=== PATIENT | female | born 1955 | race Two or more races ===

== ENCOUNTER 2017-07-19 11:23 | Inpatient (IN) | payer MEDICARE, MEDICAID ==
[~2017-07-19] VITALS: Ht 152.4 cm; Wt 49.0 kg
[~2017-07-19 11:23] MED LIST: ATOR40TA52 PO; CLOP75TA41 PO; FER325T PO; FURO10SO PO; HYDR25TA35 PO
[2017-07-19 12:42] LABS: Urine Bacteria FEW /hpf (None Seen); Urine Blood Negative /uL (Negative); Urine Specific Gravity 1.016 (1.001-1.035); Urine WBC 1 /hpf (0 - 5)
[2017-07-19 13:09] LABS: Basophils # (auto) 0 uL; Basophils % (auto) 0.3 % (0.0-2.0); Eosinophils # (auto) 0 uL; Hematocrit 30.3 % (36.0-46.0); Hemoglobin 9.9 g/dL (12.2-16.2); Lymphocytes # (auto) 1.2 uL; Lymphocytes % (auto) 8.3 % (10.0-50.0); Mean Corpuscular Hemoglobin 29.3 pg (28.0-32.0); Mean Corpuscular Hgb Conc. 32.7 g/dL (32.0-36.0); Mean Corpuscular Volume 89.4 fL (80.0-100.0); Monocytes # (auto) 1.1 uL; Monocytes % (auto) 7.6 % (0.0-12.0); Neutrophils # (auto) 11.8 uL; Neutrophils % (auto) 83.8 % (37.0-80.0); Platelet Count (auto) 230 10^3/uL (140-450); Red Blood Cells 3.39 10^6/uL (4.0-5.20); Red Cell Distribution Width 13.5 % (11.8-14.3)
[2017-07-19 13:58] LABS: Albumin 3.7 g/dL (3.4-5.0); BUN/Creatinine Ratio 8.4; Bilirubin, Total 0.4 mg/dL (0.2-1.0); Calcium 8.7 mg/dL (8.5-10.1); Potassium 4.9 mmol/L (3.5-5.1); Total Protein 7.8 g/dL (6.4-8.2)
[2017-07-19] MEDS ORDERED: SODIUM CHLORIDE 0.9% 1,000 ML IV ONE (14:53)
[2017-07-19] MEDS ORDERED: ONDANSETRON HCL 4 MG/2 ML VIAL IV ONE (15:00)
[2017-07-19 15:13] LABS: Amylase 109 U/L (25-115); Lipase 264 U/L (73-393)
[2017-07-19] MEDS ORDERED: cloNIDine HCL 0.1 MG TAB PO ONE (15:30)
[2017-07-19 15:50] LABS: Lactic Acid w/Reflex 3.2 mmol/L (0.4-2.0)
[2017-07-19] MEDS ORDERED: DEXTROSE (50%) 50ML SYRG IV PRN (16:30)
[2017-07-19] MEDS ORDERED: HYDROcodone-ACET 5/325MG TAB PO PRN (16:30)
[2017-07-19] MEDS ORDERED: MORPHINE SULFATE 10 MG/ML INJ 1ML SDV IV PRN (16:30)
[2017-07-19] MEDS ORDERED: NITROGLYCERIN 0.4 MG SL TAB SL PRN (16:30)
[2017-07-19] MEDS ORDERED: ACETAMINOPHEN 500 MG TAB PO PRN (16:30)
[2017-07-19] MEDS ORDERED: ALBUTEROL SULF 2.5 MG/0.5ML(0.5%) NEB SOLN NEB PRN (16:30)
[2017-07-19] MEDS ORDERED: LORazepam 0.5 MG TAB PO PRN (16:30)
[2017-07-19] MEDS ORDERED: TEMAZEPAM 15 MG CAP PO PRN (16:30)
[2017-07-19] MEDS ORDERED: AZITHROMYCIN 500MG/ 250ML 250 ML IV ONE ×2 (16:30→21:00)
[2017-07-19] MEDS ORDERED: VANCOMYCIN PER PHARMACY 0 MG IV SCH (16:30)
[2017-07-19] MEDS ORDERED: PROMETHAZINE HCL 25 MG/ML 1ML IV PRN (16:30)
[2017-07-19] MEDS ORDERED: PIPERACILLIN-TAZOB 2.25GM 50 ML IV ONE (16:30)
[2017-07-19] MEDS ORDERED: MORPHINE SULF INJ 2 MG/ML SYRINGE 1ML IV PRN (16:30)
[2017-07-19] MEDS ORDERED: OSELTAMIVIR 75 MG CAP PO ONE (17:00)
[2017-07-19 17:04] LABS: Alcohol, Urine < 3.0 mg/dL (0-5); Amphetamine Screen, Urine NEGATIVE (NEGATIVE); Barbiturate Scree,Urine NEGATIVE (NEGATIVE); Benzodiazephine Screen, Urine NEGATIVE (NEGATIVE); Cannabinoid Screen, Urine NEGATIVE (NEGATIVE); Cocaine Screen, Urine NEGATIVE (NEGATIVE); Opiate Scree,Urine NEGATIVE (NEGATIVE); Phencyclidine Screen, Urine NEGATIVE (NEGATIVE)
[2017-07-19] MEDS: ACCU-CHEK COMFORT CURVE STRIP VI SCH ×2 (17:13→22:00)
[2017-07-19] MEDS: InsuLIN REG 1unit/0.01ml Soln (100units/ml) SC SCH ×2 (17:16→22:37)
[2017-07-19] MEDS: NITROGLYCERIN 50MG/250ML 250 ML IV SCH (17:29)
[2017-07-19] MEDS ORDERED: VANCOMYCIN 750 MG in D5W 5% 250 ML IV ONE ×2 (17:30→20:00)
[2017-07-19] MEDS: ALBUTEROL SULF 2.5 MG/0.5ML(0.5%) NEB SOLN NEB SCH (18:00)
[2017-07-19] MEDS: IPRATROPIUM BROM 0.5 MG/2.5ML INH SOL NEB SCH (18:00)
[2017-07-19 19:29] VITALS: BP 142/65
[2017-07-19] MEDS: SODIUM CHLOR 0.9% PF (SALINE LOCK) 10ML VIAL IV SCH (22:00)
[2017-07-19] MEDS: CARVEDILOL 3.125 MG TAB PO SCH (22:30)
[2017-07-19] MEDS: FERROUS SULFATE 325 MG TAB PO SCH (22:30)
[2017-07-19] MEDS: hydrALAZINE HCL 25 MG TAB PO SCH (22:30)
[2017-07-19] MEDS: PIPERACILLIN-TAZOB 2.25GM 50 ML IV SCH (23:29)
[2017-07-20] MEDS: PIPERACILLIN-TAZOB 2.25GM 50 ML IV SCH ×3 (05:33→22:25)
[2017-07-20] MEDS: FERROUS SULFATE 325 MG TAB PO SCH ×3 (05:33→22:26)
[2017-07-20] MEDS: SODIUM CHLOR 0.9% PF (SALINE LOCK) 10ML VIAL IV SCH ×3 (05:33→22:26)
[2017-07-20] MEDS: hydrALAZINE HCL 25 MG TAB PO SCH ×3 (05:34→22:25)
[2017-07-20 05:43] LABS: Basophils # (auto) 0.1 uL; Basophils % (auto) 0.9 % (0.0-2.0); Eosinophils # (auto) 0 uL; Eosinophils % (auto) 0.3 % (0.0-7.0); Hematocrit 26.2 % (36.0-46.0); Hemoglobin 9.1 g/dL (12.2-16.2); Lymphocytes # (auto) 1.7 uL; Lymphocytes % (auto) 14.2 % (10.0-50.0); Mean Corpuscular Hemoglobin 30.7 pg (28.0-32.0); Mean Corpuscular Hgb Conc. 34.6 g/dL (32.0-36.0); Mean Corpuscular Volume 88.7 fL (80.0-100.0); Monocytes # (auto) 1.5 uL; Monocytes % (auto) 12.2 % (0.0-12.0); Neutrophils # (auto) 8.7 uL; Neutrophils % (auto) 72.4 % (37.0-80.0); Platelet Count (auto) 218 10^3/uL (140-450); Red Blood Cells 2.95 10^6/uL (4.0-5.20); Red Cell Distribution Width 13.6 % (11.8-14.3)
[2017-07-20 06:17] LABS: Albumin 3.2 g/dL (3.4-5.0); BUN/Creatinine Ratio 9.6; Bilirubin, Total 0.4 mg/dL (0.2-1.0); Calcium 8.3 mg/dL (8.5-10.1); Potassium 4.7 mmol/L (3.5-5.1); Total Protein 6.8 g/dL (6.4-8.2)
[2017-07-20] MEDS: ALBUTEROL SULF 2.5 MG/0.5ML(0.5%) NEB SOLN NEB SCH ×4 (06:30→18:43)
[2017-07-20] MEDS: IPRATROPIUM BROM 0.5 MG/2.5ML INH SOL NEB SCH ×4 (06:30→18:43)
[2017-07-20] MEDS: ACCU-CHEK COMFORT CURVE STRIP VI SCH ×4 (06:51→22:00)
[2017-07-20] MEDS: InsuLIN REG 1unit/0.01ml Soln (100units/ml) SC SCH ×4 (06:52→22:00)
[2017-07-20] MEDS: FUROSEMIDE 40 MG/4 ML VIAL IV SCH (09:33)
[2017-07-20] MEDS: ASPirin 81 mg TAB PO SCH (09:54)
[2017-07-20] MEDS: CARVEDILOL 3.125 MG TAB PO SCH ×2 (09:55→22:26)
[2017-07-20] MEDS: CLOPIDOGREL BISULFATE 75 MG TAB PO SCH (09:56)
[2017-07-20] MEDS: ATORVASTATIN 20 MG TAB PO SCH (09:57)
[2017-07-20] MEDS: POTASSIUM CHL 20 Meq TABLET PO SCH (09:59)
[2017-07-20] MEDS: NITROGLYCERIN 0.2MG/HR TOPICAL PATCH TD SCH ×2 (10:00→16:23)
[2017-07-20] MEDS ORDERED: AZITHROMYCIN 500MG/ 250ML 250 ML IV SCH (10:00)
[2017-07-20] MEDS: ENALAPRIL MALEATE 2.5 MG TAB PO SCH (10:01)
[2017-07-20] MEDS: ENOXAPARIN SOD 60 MG/0.6 ML SYRINGE SC SCH (10:02)
[2017-07-20] MEDS ORDERED: EPOETIN ALFA 10,000 UNIT/1 ML VIAL IV ONE (14:15)
[2017-07-20 15:55] VITALS: BP 140/64
[2017-07-20] MEDS: NITROGLYCERIN 50MG/250ML 250 ML IV SCH (16:43)
[2017-07-20] MEDS ORDERED: OSELTAMIVIR 30 MG CAP PO PRN (17:00)
[2017-07-20] MEDS ORDERED: VANCOMYCIN 1GM/250ML 250 ML IV ONE (18:00)
[2017-07-20] MEDS ORDERED: MORPHINE SULFATE 4 MG/ML SYR/VIAL IV PRN ×2 (19:45)
[2017-07-21] VITALS (47 sets, daily range): BP systolic 133–183; BP diastolic 54–88
[2017-07-21] MEDS: IPRATROPIUM BROM 0.5 MG/2.5ML INH SOL NEB SCH ×4 (00:29→18:44)
[2017-07-21] MEDS: ALBUTEROL SULF 2.5 MG/0.5ML(0.5%) NEB SOLN NEB SCH ×4 (00:29→18:44)
[2017-07-21] MEDS: SODIUM CHLOR 0.9% PF (SALINE LOCK) 10ML VIAL IV SCH ×3 (05:32→21:55)
[2017-07-21] MEDS: FERROUS SULFATE 325 MG TAB PO SCH ×3 (05:32→21:53)
[2017-07-21] MEDS: PIPERACILLIN-TAZOB 2.25GM 50 ML IV SCH (05:32)
[2017-07-21] MEDS: hydrALAZINE HCL 25 MG TAB PO SCH ×3 (05:32→21:53)
[2017-07-21] MEDS: ACCU-CHEK COMFORT CURVE STRIP VI SCH ×3 (07:15→17:32)
[2017-07-21] MEDS: InsuLIN REG 1unit/0.01ml Soln (100units/ml) SC SCH ×3 (07:25→17:32)
[2017-07-21] MEDS ORDERED: cloNIDine HCL 0.1 MG TAB PO ONE (07:45)
[2017-07-21 09:45] LABS: Basophils # (auto) 0.1 uL; Basophils % (auto) 1.2 % (0.0-2.0); Eosinophils # (auto) 0.2 uL; Eosinophils % (auto) 1.6 % (0.0-7.0); Hematocrit 26.4 % (36.0-46.0); Hemoglobin 8.8 g/dL (12.2-16.2); Lymphocytes # (auto) 1.4 uL; Lymphocytes % (auto) 11.6 % (10.0-50.0); Mean Corpuscular Hemoglobin 29.9 pg (28.0-32.0); Mean Corpuscular Hgb Conc. 33.3 g/dL (32.0-36.0); Mean Corpuscular Volume 89.7 fL (80.0-100.0); Monocytes # (auto) 1.5 uL; Neutrophils % (auto) 73.6 % (37.0-80.0); Platelet Count (auto) 277 10^3/uL (140-450); Red Blood Cells 2.94 10^6/uL (4.0-5.20); Red Cell Distribution Width 13.6 % (11.8-14.3); White Blood Cell 12.2 10^3/uL (4.4-10.8)
[2017-07-21] MEDS: ASPirin 81 mg TAB PO SCH (09:50)
[2017-07-21] MEDS: CLOPIDOGREL BISULFATE 75 MG TAB PO SCH (09:51)
[2017-07-21] MEDS: ATORVASTATIN 20 MG TAB PO SCH (09:51)
[2017-07-21] MEDS: POTASSIUM CHL 20 Meq TABLET PO SCH (09:51)
[2017-07-21] MEDS: ENALAPRIL MALEATE 2.5 MG TAB PO SCH (09:51)
[2017-07-21] MEDS: CARVEDILOL 3.125 MG TAB PO SCH ×2 (09:52→21:53)
[2017-07-21] MEDS: ENOXAPARIN SOD 60 MG/0.6 ML SYRINGE SC SCH (09:54)
[2017-07-21] MEDS: FUROSEMIDE 40 MG/4 ML VIAL IV SCH (09:55)
[2017-07-21] MEDS: NITROGLYCERIN 0.2MG/HR TOPICAL PATCH TD SCH (09:55)
[2017-07-21] MEDS ORDERED: DONNATAL 5ml ORAL Elix (BELLADONNA ALK-PHENOBARB) PO ONE (10:00)
[2017-07-21] MEDS ORDERED: LIDOCAINE VISCOUS 2% 15ML UD PO ONE (10:00)
[2017-07-21] MEDS ORDERED: ALUM & MAG HYDROX-SIMETH LIQ(MAALOX) 30 ML PO ONE ×2 (10:00)
[2017-07-21 11:22] LABS: Albumin 3.1 g/dL (3.4-5.0); BUN/Creatinine Ratio 7.8; Bilirubin, Total 0.4 mg/dL (0.2-1.0); Calcium 8.1 mg/dL (8.5-10.1); Potassium 4.4 mmol/L (3.5-5.1)
[2017-07-21] MEDS ORDERED: DEXTROSE (50%) 50ML SYRG IV PRN (13:15)
[2017-07-21] MEDS ORDERED: amLODIPine BESYLATE 5 MG TAB PO ONE (13:30)
[2017-07-21] MEDS: cloNIDine HCL 0.1 MG TAB PO SCH ×2 (14:01→21:54)
[2017-07-21] MEDS: NITROGLYCERIN 50MG/250ML 250 ML IV SCH ×2 (16:11→23:45)
[2017-07-21] MEDS: ALUM & MAG HYDROX-SIMETH LIQ(MAALOX) 30 ML PO PRN (17:28)
[2017-07-21] MEDS: PANTOPRAZOLE 40 MG TAB PO SCH (21:54)
[2017-07-22] VITALS (90 sets, daily range): BP systolic 122–203; BP diastolic 42–98
[2017-07-22] MEDS: ACCU-CHEK COMFORT CURVE STRIP VI SCH ×5 (00:22→23:25)
[2017-07-22] MEDS: InsuLIN REG 1unit/0.01ml Soln (100units/ml) SC SCH ×5 (00:23→23:25)
[2017-07-22] MEDS: ALBUTEROL SULF 2.5 MG/0.5ML(0.5%) NEB SOLN NEB SCH ×4 (00:29→18:52)
[2017-07-22] MEDS: IPRATROPIUM BROM 0.5 MG/2.5ML INH SOL NEB SCH ×4 (00:29→18:52)
[2017-07-22 05:12] LABS: Basophils # (auto) 0.1 uL; Eosinophils # (auto) 0.4 uL; Hemoglobin 7.8 g/dL (12.2-16.2); Mean Corpuscular Hemoglobin 30.4 pg (28.0-32.0); Monocytes # (auto) 1.6 uL; Nucleated Red Blood Cells % 0.1 %; Red Blood Cells 2.58 10^6/uL (4.0-5.20)
[2017-07-22 05:20] LABS: Basophils % (auto) 0.5 % (0.0-2.0); Eosinophils % (auto) 3.7 % (0.0-7.0); Lymphocytes # (auto) 1.3 uL; Lymphocytes % (auto) 12.6 % (10.0-50.0); Mean Corpuscular Volume 89.3 fL (80.0-100.0); Monocytes % (auto) 15.3 % (0.0-12.0); Neutrophils % (auto) 67.9 % (37.0-80.0); Platelet Count (auto) 228 10^3/uL (140-450); Red Cell Distribution Width 13.6 % (11.8-14.3); White Blood Cell 10.3 10^3/uL (4.4-10.8)
[2017-07-22 05:28] LABS: BUN/Creatinine Ratio 7.8; Calcium 8.1 mg/dL (8.5-10.1); Potassium 5.2 mmol/L (3.5-5.1)
[2017-07-22 05:29] LABS: Magnesium 2.9 mg/dL (1.6-2.6)
[2017-07-22] MEDS: cloNIDine HCL 0.1 MG TAB PO SCH ×2 (06:16→13:09)
[2017-07-22] MEDS: FERROUS SULFATE 325 MG TAB PO SCH ×3 (06:16→21:34)
[2017-07-22] MEDS: SODIUM CHLOR 0.9% PF (SALINE LOCK) 10ML VIAL IV SCH ×3 (06:17→21:35)
[2017-07-22] MEDS: hydrALAZINE HCL 25 MG TAB PO SCH ×3 (06:25→21:34)
[2017-07-22] MEDS ORDERED: ceFAZolin 1GM/50ML 50 ML IV ONE (08:55)
[2017-07-22] MEDS ORDERED: LACTULOSE 20Gm/30ML SOLN PO PRN (09:15)
[2017-07-22] MEDS: ASPirin 81 mg TAB PO SCH (09:50)
[2017-07-22] MEDS: FUROSEMIDE 40 MG/4 ML VIAL IV SCH (09:50)
[2017-07-22] MEDS: CARVEDILOL 3.125 MG TAB PO SCH ×2 (09:50→21:34)
[2017-07-22] MEDS: POTASSIUM CHL 20 Meq TABLET PO SCH (09:51)
[2017-07-22] MEDS: ATORVASTATIN 20 MG TAB PO SCH (09:51)
[2017-07-22] MEDS: CLOPIDOGREL BISULFATE 75 MG TAB PO SCH (09:51)
[2017-07-22] MEDS: PANTOPRAZOLE 40 MG TAB PO SCH ×2 (09:51→21:34)
[2017-07-22] MEDS: amLODIPine BESYLATE 5 MG TAB PO SCH (09:51)
[2017-07-22] MEDS: ENALAPRIL MALEATE 2.5 MG TAB PO SCH (09:52)
[2017-07-22] MEDS ORDERED: EPOETIN ALFA 10,000 UNIT/1 ML VIAL IV ONE (10:00)
[2017-07-22] MEDS ORDERED: amLODIPine BESYLATE 5 MG TAB PO SCH (10:00)
[2017-07-22] MEDS: ALUM & MAG HYDROX-SIMETH LIQ(MAALOX) 30 ML PO PRN (16:01)
[2017-07-22] MEDS: cloNIDine HCL 0.1 MG TAB PO PRN (16:01)
[2017-07-22] MEDS: NITROGLYCERIN 50MG/250ML 250 ML IV SCH (18:00)
[2017-07-23] VITALS (74 sets, daily range): BP systolic 100–189; BP diastolic 50–93
[2017-07-23] MEDS: IPRATROPIUM BROM 0.5 MG/2.5ML INH SOL NEB SCH ×4 (00:18→18:53)
[2017-07-23] MEDS: ALBUTEROL SULF 2.5 MG/0.5ML(0.5%) NEB SOLN NEB SCH ×4 (00:18→18:53)
[2017-07-23] MEDS: NICARDIPINE 25MG/250ML BAG KIT 250 ML IV SCH ×5 (03:21→23:19)
[2017-07-23] MEDS ORDERED: NICARDIPINE 25MG/250ML BAG KIT 250 ML IV ONE (03:31)
[2017-07-23 03:58] LABS: Basophils # (auto) 0.1 uL; Eosinophils # (auto) 0.3 uL; Platelet Count (auto) 235 10^3/uL (140-450); Red Cell Distribution Width 13.6 % (11.8-14.3)
[2017-07-23 04:02] LABS: Hematocrit 24.2 % (36.0-46.0); Hemoglobin 8.2 g/dL (12.2-16.2); Lymphocytes # (auto) 1.2 uL; Mean Corpuscular Hemoglobin 30.3 pg (28.0-32.0); Mean Corpuscular Hgb Conc. 33.7 g/dL (32.0-36.0); Mean Corpuscular Volume 89.8 fL (80.0-100.0); Monocytes # (auto) 1.4 uL; Monocytes % (auto) 14.1 % (0.0-12.0); Neutrophils % (auto) 69.9 % (37.0-80.0); White Blood Cell 10.1 10^3/uL (4.4-10.8)
[2017-07-23 04:11] LABS: Calcium 8.1 mg/dL (8.5-10.1); Magnesium 2.5 mg/dL (1.6-2.6); Potassium 4.5 mmol/L (3.5-5.1)
[2017-07-23 04:13] LABS: BUN/Creatinine Ratio 6.4
[2017-07-23] MEDS: ACCU-CHEK COMFORT CURVE STRIP VI SCH ×3 (05:33→17:51)
[2017-07-23] MEDS: hydrALAZINE HCL 25 MG TAB PO SCH ×3 (05:33→22:43)
[2017-07-23] MEDS: InsuLIN REG 1unit/0.01ml Soln (100units/ml) SC SCH ×3 (05:33→17:51)
[2017-07-23] MEDS: SODIUM CHLOR 0.9% PF (SALINE LOCK) 10ML VIAL IV SCH ×3 (05:34→22:00)
[2017-07-23] MEDS: FERROUS SULFATE 325 MG TAB PO SCH ×3 (05:34→22:41)
[2017-07-23] MEDS: POTASSIUM CHL 20 Meq TABLET PO SCH (10:00)
[2017-07-23] MEDS: ASPirin 81 mg TAB PO SCH (10:39)
[2017-07-23] MEDS: CARVEDILOL 3.125 MG TAB PO SCH ×2 (10:39→22:42)
[2017-07-23] MEDS: FUROSEMIDE 40 MG/4 ML VIAL IV SCH (10:39)
[2017-07-23] MEDS: ATORVASTATIN 20 MG TAB PO SCH (10:40)
[2017-07-23] MEDS: CLOPIDOGREL BISULFATE 75 MG TAB PO SCH (10:40)
[2017-07-23] MEDS: PANTOPRAZOLE 40 MG TAB PO SCH ×2 (10:40→22:41)
[2017-07-23] MEDS: amLODIPine BESYLATE 5 MG TAB PO SCH (10:40)
[2017-07-23] MEDS: ENALAPRIL MALEATE 2.5 MG TAB PO SCH (10:41)
[2017-07-23] MEDS: ENOXAPARIN SOD 60 MG/0.6 ML SYRINGE SC SCH (10:41)
[2017-07-23] MEDS: NITROGLYCERIN 50MG/250ML 250 ML IV SCH (17:36)
[2017-07-23] MEDS: cloNIDine HCL 0.1 MG TAB PO PRN (18:43)
[2017-07-24] VITALS (34 sets, daily range): BP systolic 125–194; BP diastolic 51–99
[2017-07-24] MEDS: InsuLIN REG 1unit/0.01ml Soln (100units/ml) SC SCH ×4 (00:44→17:53)
[2017-07-24] MEDS: ALBUTEROL SULF 2.5 MG/0.5ML(0.5%) NEB SOLN NEB SCH ×4 (00:51→18:50)
[2017-07-24] MEDS: IPRATROPIUM BROM 0.5 MG/2.5ML INH SOL NEB SCH ×4 (00:51→18:50)
[2017-07-24] MEDS: cloNIDine HCL 0.1 MG TAB PO PRN (01:03)
[2017-07-24 04:01] LABS: Basophils # (auto) 0.1 uL; Basophils % (auto) 0.5 % (0.0-2.0); Eosinophils # (auto) 0.4 uL; Eosinophils % (auto) 3.5 % (0.0-7.0); Hemoglobin 8.8 g/dL (12.2-16.2); Lymphocytes # (auto) 1.5 uL; Mean Corpuscular Hemoglobin 30.1 pg (28.0-32.0); Mean Corpuscular Hgb Conc. 33.9 g/dL (32.0-36.0); Mean Corpuscular Volume 88.7 fL (80.0-100.0); Monocytes # (auto) 1.3 uL; Monocytes % (auto) 11.9 % (0.0-12.0); Neutrophils # (auto) 7.6 uL; Neutrophils % (auto) 70.1 % (37.0-80.0); Nucleated Red Blood Cells % 0.1 %; Platelet Count (auto) 246 10^3/uL (140-450); Red Blood Cells 2.93 10^6/uL (4.0-5.20); Red Cell Distribution Width 13.5 % (11.8-14.3); White Blood Cell 10.9 10^3/uL (4.4-10.8)
[2017-07-24 04:17] LABS: BUN/Creatinine Ratio 7.2; Calcium 8.5 mg/dL (8.5-10.1); Magnesium 2.9 mg/dL (1.6-2.6); Potassium 4.7 mmol/L (3.5-5.1)
[2017-07-24] MEDS: NICARDIPINE 25MG/250ML BAG KIT 250 ML IV SCH (04:19)
[2017-07-24] MEDS: ACCU-CHEK COMFORT CURVE STRIP VI SCH ×4 (06:00→17:53)
[2017-07-24] MEDS: SODIUM CHLOR 0.9% PF (SALINE LOCK) 10ML VIAL IV SCH ×3 (06:28→22:00)
[2017-07-24] MEDS: FERROUS SULFATE 325 MG TAB PO SCH (07:30)
[2017-07-24] MEDS: hydrALAZINE HCL 25 MG TAB PO SCH ×3 (07:31→22:29)
[2017-07-24] MEDS: POTASSIUM CHL 20 Meq TABLET PO SCH (10:00)
[2017-07-24] MEDS ORDERED: cloNIDine HCL 0.1 MG TAB PO PRN (10:15)
[2017-07-24] MEDS: ASPirin 81 mg TAB PO SCH (10:35)
[2017-07-24] MEDS: FUROSEMIDE 40 MG/4 ML VIAL IV SCH (10:35)
[2017-07-24] MEDS: amLODIPine BESYLATE 5 MG TAB PO SCH (10:36)
[2017-07-24] MEDS: ATORVASTATIN 20 MG TAB PO SCH (10:36)
[2017-07-24] MEDS: ENOXAPARIN SOD 60 MG/0.6 ML SYRINGE SC SCH (10:37)
[2017-07-24] MEDS: PANTOPRAZOLE 40 MG TAB PO SCH ×2 (10:37→22:28)
[2017-07-24] MEDS: CLOPIDOGREL BISULFATE 75 MG TAB PO SCH (10:37)
[2017-07-24] MEDS ORDERED: CARVEDILOL 3.125 MG TAB ONE (10:48)
[2017-07-24] MEDS ORDERED: ENALAPRIL MALEATE 2.5 MG TAB ONE (10:48)
[2017-07-24] MEDS ORDERED: hydrALAZINE HCL 25 MG TAB PO SCH (14:00)
[2017-07-24] MEDS: ENALAPRIL MALEATE 2.5 MG TAB PO SCH (17:53)
[2017-07-24] MEDS: CARVEDILOL 12.5 MG TAB PO SCH (22:00)
[2017-07-25] VITALS (10 sets, daily range): BP systolic 133–188; BP diastolic 47–84
[2017-07-25] MEDS: IPRATROPIUM BROM 0.5 MG/2.5ML INH SOL NEB SCH ×3 (00:26→12:00)
[2017-07-25] MEDS: ALBUTEROL SULF 2.5 MG/0.5ML(0.5%) NEB SOLN NEB SCH ×3 (00:26→12:00)
[2017-07-25 03:51] LABS: Basophils # (auto) 0.1 uL; Basophils % (auto) 0.7 % (0.0-2.0); Eosinophils # (auto) 0.4 uL; Eosinophils % (auto) 3.6 % (0.0-7.0); Lymphocytes # (auto) 1.6 uL; Lymphocytes % (auto) 16.4 % (10.0-50.0); Mean Corpuscular Hgb Conc. 33.3 g/dL (32.0-36.0); Monocytes # (auto) 1.3 uL; Neutrophils # (auto) 6.6 uL; Neutrophils % (auto) 66.3 % (37.0-80.0); Nucleated Red Blood Cells % 0.1 %; Platelet Count (auto) 256 10^3/uL (140-450); Red Cell Distribution Width 13.7 % (11.8-14.3); White Blood Cell 9.9 10^3/uL (4.4-10.8)
[2017-07-25 04:10] LABS: Potassium 4.7 mmol/L (3.5-5.1)
[2017-07-25 04:15] LABS: BUN/Creatinine Ratio 7.6; Calcium 8.7 mg/dL (8.5-10.1); Magnesium 3.3 mg/dL (1.6-2.6)
[2017-07-25] MEDS: ACCU-CHEK COMFORT CURVE STRIP VI SCH ×3 (06:00→12:13)
[2017-07-25] MEDS: InsuLIN REG 1unit/0.01ml Soln (100units/ml) SC SCH ×3 (06:00→12:14)
[2017-07-25] MEDS: SODIUM CHLOR 0.9% PF (SALINE LOCK) 10ML VIAL IV SCH ×2 (06:00→13:38)
[2017-07-25] MEDS: hydrALAZINE HCL 25 MG TAB PO SCH ×2 (06:00→14:00)
[2017-07-25] MEDS: CLOPIDOGREL BISULFATE 75 MG TAB PO SCH (09:49)
[2017-07-25] MEDS: ATORVASTATIN 20 MG TAB PO SCH (09:49)
[2017-07-25] MEDS: POTASSIUM CHL 20 Meq TABLET PO SCH (09:50)
[2017-07-25] MEDS: ASPirin 81 mg TAB PO SCH (09:50)
[2017-07-25] MEDS: PANTOPRAZOLE 40 MG TAB PO SCH (09:50)
[2017-07-25] MEDS: FUROSEMIDE 40 MG/4 ML VIAL IV SCH (09:53)
[2017-07-25] MEDS: ENOXAPARIN SOD 60 MG/0.6 ML SYRINGE SC SCH (09:53)
[2017-07-25] MEDS ORDERED: EPOETIN ALFA 10,000 UNIT/1 ML VIAL IV ONE (10:00)
[2017-07-25] MEDS: amLODIPine BESYLATE 5 MG TAB PO SCH (10:00)
[2017-07-25] MEDS: CARVEDILOL 12.5 MG TAB PO SCH (10:00)
[2017-07-25] MEDS ORDERED: SODIUM CHL 0.9% 1000 ML BAG XX ONE (10:00)
[2017-07-25] MEDS ORDERED: AML5T PO (10:58)
[2017-07-25] MEDS ORDERED: HYDR-4298 PO (10:58)
[2017-07-25] MEDS ORDERED: ENA2.5T PO (10:58)
[2017-07-25] MEDS ORDERED: CAR125T PO (10:58)
[2017-07-25] MEDS ORDERED: amLODIPine BESYLATE 5 MG TAB PO ONE (13:45)
[2017-07-25] MEDS: ENALAPRIL MALEATE 2.5 MG TAB PO SCH (15:45)
== END 2017-07-25 17:50 | disposition home or self-care (01) | DRG 871 ==
LOC: ER 11:23 → TELE 11:24 → ICU WEST 07-21 10:55 → TELE-WESTW 07-25 08:09
PROVIDERS: ADMIT Internal Medicine; ATTEND Internal Medicine
PROC: 5A1D70Z Performance of Urinary Filtration, Intermittent, Less than 6 Hours Per Day (ICD-10-PCS; principal; 2017-07-20)
PROC: 5A1D70Z Performance of Urinary Filtration, Intermittent, Less than 6 Hours Per Day (ICD-10-PCS; 2017-07-22)
PROC: 5A1D70Z Performance of Urinary Filtration, Intermittent, Less than 6 Hours Per Day (ICD-10-PCS; 2017-07-25)
DX: A41.9 Sepsis, unspecified organism (principal); N18.6 End stage renal disease; I13.2 Hypertensive heart and chronic kidney disease with heart failure and with stage 5 chronic kidney disease, or end stage renal disease; E11.22 Type 2 diabetes mellitus with diabetic chronic kidney disease; I24.9 Acute ischemic heart disease, unspecified; I69.351 Hemiplegia and hemiparesis following cerebral infarction affecting right dominant side; I50.9 Heart failure, unspecified; K80.20 Calculus of gallbladder without cholecystitis without obstruction; D63.1 Anemia in chronic kidney disease; E78.5 Hyperlipidemia, unspecified; F32.9 Major depressive disorder, single episode, unspecified; F41.9 Anxiety disorder, unspecified; I25.10 Atherosclerotic heart disease of native coronary artery without angina pectoris; G47.00 Insomnia, unspecified; K40.20 Bilateral inguinal hernia, without obstruction or gangrene, not specified as recurrent; K42.9 Umbilical hernia without obstruction or gangrene; I16.0 Hypertensive urgency; K52.9 Noninfective gastroenteritis and colitis, unspecified; Z82.3 Family history of stroke; Z99.2 Dependence on renal dialysis; Z82.49 Family history of ischemic heart disease and other diseases of the circulatory system; Z83.3 Family history of diabetes mellitus; I69.398 Other sequelae of cerebral infarction; Z79.899 Other long term (current) drug therapy
CPT/HCPCS: 36415; 36600; 70450; 71046; 74176; 80048; 80053; 80061; 80202; 80307; 81001; 82150; 82271; 82550; 82805; 82962; 83036; 83605; 83690; 83735; 83880; 84443; 84484; 85025; 86141; 87040; 87081; 87400; 90935; 93005; 93306; 94640; 96361; 96365; 96375; 97163; J0690; J0885; J1815; J2405; J2543; J7060

== ENCOUNTER → 2017-11-08 | Outpatient (CLI) | payer MEDICARE, MEDICAID ==
[~2017-11-08] VITALS: Ht 152.4 cm; Wt 39.9 kg
[~2017-11-08] MED LIST changes: +ADENOSINE 34 MG in GIVE UN-DILUTED 0 ML IV ONE; +AML5T PO; +CAR125T PO; +ENA2.5T PO; +HYDR-4298 PO; -HYDR25TA35 PO
[2017-11-08 12:13] VITALS: BP 163/72
== END | disposition home or self-care (01) ==
LOC: XY 09:43
PROVIDERS: ATTEND Internal Medicine
DX: I12.0 Hypertensive chronic kidney disease with stage 5 chronic kidney disease or end stage renal disease (principal); E11.22 Type 2 diabetes mellitus with diabetic chronic kidney disease; N18.6 End stage renal disease; E78.5 Hyperlipidemia, unspecified; E03.9 Hypothyroidism, unspecified; Z79.899 Other long term (current) drug therapy
CPT/HCPCS: 93017; J0153; 78452

== ENCOUNTER 2018-08-19 07:34 | Emergency (ER) | payer MEDICARE, MEDICAID ==
[~2018-08-19] VITALS: Ht 152.4 cm; Wt 54.4 kg
[~2018-08-19 07:34] MED LIST changes: -ADENOSINE 34 MG in GIVE UN-DILUTED 0 ML IV ONE
[2018-08-19 08:05] LABS: Basophils # (auto) 0.1 uL; Basophils % (auto) 1.9 % (0.0-2.0); Eosinophils # (auto) 0.1 uL; Eosinophils % (auto) 2.5 % (0.0-7.0); Hematocrit 35.8 % (36.0-46.0); Hemoglobin 11.8 g/dL (12.2-16.2); Lymphocytes # (auto) 1.6 uL; Lymphocytes % (auto) 31.2 % (10.0-50.0); Mean Corpuscular Hemoglobin 29.8 pg (28.0-32.0); Mean Corpuscular Hgb Conc. 32.8 g/dL (32.0-36.0); Mean Corpuscular Volume 90.7 fL (80.0-100.0); Monocytes # (auto) 0.6 uL; Monocytes % (auto) 11.2 % (0.0-12.0); Neutrophils # (auto) 2.7 uL; Neutrophils % (auto) 53.2 % (37.0-80.0); Platelet Count (auto) 245 10^3/uL (140-450); Red Blood Cells 3.95 10^6/uL (4.0-5.20); Red Cell Distribution Width 13.6 % (11.8-14.3); White Blood Cell 5.1 10^3/uL (4.4-10.8)
[2018-08-19] MEDS ORDERED: hydrALAZINE HCL 20 MG/ML VL IV ONE (08:15)
[2018-08-19 08:24] LABS: Albumin 3.7 g/dL (3.4-5.0); BUN/Creatinine Ratio 6.1; Calcium 8.6 mg/dL (8.5-10.1); Potassium 4.8 mmol/L (3.5-5.1)
[2018-08-19 08:27] LABS: Bilirubin, Total 0.4 mg/dL (0.2-1.0); Total Protein 7.4 g/dL (6.4-8.2)
[2018-08-19 09:32] LABS: Magnesium 2.8 mg/dL (1.6-2.6)
[2018-08-19] MEDS ORDERED: LABETALOL HCL 5 MG/ML ML 20ML VIAL IV ONE (10:00)
[2018-08-19] MEDS ORDERED: cloNIDine HCL 0.1 MG TAB ONE (10:02)
[2018-08-19] MEDS ORDERED: cloNIDine HCL 0.1 MG TAB PO ONE (10:15)
[2018-08-19 12:39] VITALS: BP 150/64
== END 2018-08-19 13:34 | disposition home or self-care (01) ==
LOC: ER 07:34
DX: I16.1 Hypertensive emergency (principal); N17.9 Acute kidney failure, unspecified; I25.10 Atherosclerotic heart disease of native coronary artery without angina pectoris; E11.22 Type 2 diabetes mellitus with diabetic chronic kidney disease; I12.0 Hypertensive chronic kidney disease with stage 5 chronic kidney disease or end stage renal disease; N18.6 End stage renal disease; E78.5 Hyperlipidemia, unspecified; I25.2 Old myocardial infarction; E07.9 Disorder of thyroid, unspecified; Z86.73 Personal history of transient ischemic attack (TIA), and cerebral infarction without residual deficits; Z88.5 Allergy status to narcotic agent; Z88.8 Allergy status to other drugs, medicaments and biological substances; Z79.01 Long term (current) use of anticoagulants; Z79.899 Other long term (current) drug therapy; Z99.2 Dependence on renal dialysis
CPT/HCPCS: 36415; 71046; 80053; 83735; 84443; 84484; 85025; 93005; 94761; 96374; 99284; J0360